=== PATIENT | male | born 2000 | race Caucasian/White ===

== ENCOUNTER 2021-07-03 21:41 | Emergency (ER) | payer SELFPAY ==
[~2021-07-03] VITALS: Ht 190.5 cm; Wt 68.2 kg
[2021-07-03 22:02] VITALS: BP 128/109
[2021-07-03] MEDS ORDERED: acetaminophen 325mg tablet PO ONE (22:50)
== END 2021-07-03 23:13 ==
LOC: ER 21:41
DX: S01.81XA Laceration without foreign body of other part of head, initial encounter (principal); S01.511A Laceration without foreign body of lip, initial encounter; F10.129 Alcohol abuse with intoxication, unspecified; F12.10 Cannabis abuse, uncomplicated; Y90.9 Presence of alcohol in blood, level not specified; Y04.8XXA Assault by other bodily force, initial encounter; Y93.89 Activity, other specified; Y92.89 Other specified places as the place of occurrence of the external cause; Y99.8 Other external cause status
CPT/HCPCS: 12011; 99283